=== PATIENT | female | born 1975 | race Caucasian/White ===

== ENCOUNTER 2020-03-05 15:34 | Inpatient (IN) | payer SELFPAY ==
[~2020-03-05] VITALS: Ht 162.6 cm; Wt 72.6 kg
[2020-03-05] MEDS ORDERED: PNV1TABL76 PO (16:19)
[2020-03-05] MEDS ORDERED: LIDOCAINE HCL 1% 20ML VIAL (Pyxis) INJ INFIL SCH (16:30)
[2020-03-05] MEDS ORDERED: RHO(D) IMMUNE GLOBULIN 300 MCG/SYR IM SCH (16:30)
[2020-03-05] MEDS ORDERED: LACTATED RINGERS 1,000 ML IV SCH (16:45)
[2020-03-05 16:50] LABS: CLARITY URINE CLEAR (CLEAR); COLOR URINE YELLOW (YELLOW); KETONES URINE NEGATIVE (NEGATIVE); LEUKOCYTE ESTERASE URINE TRACE (NEGATIVE); NITRITE URINE NEGATIVE (NEGATIVE); OCCULT BLOOD URINE NEGATIVE (NEGATIVE); PH URINE 6.5 (4.5-8.0); PROTEIN URINE TRACE (NEGATIVE); SPECIFIC GRAVITY URINE 1.006 (1.005-1.030); UROBILINOGEN URINE 0.2 E.U./dL (0.2-1.0)
[2020-03-05] MEDS ORDERED: PENICILLIN G POTASSIUM 5MMU in DEXTROSE 5% WATER 100ML IV NR (17:00)
[2020-03-05 17:19] LABS: *BARBITURATES SCREEN URINE NEGATIVE (NEGATIVE); *BENZODIAZEPINES SCREEN URINE NEGATIVE (NEGATIVE)
[2020-03-05 17:20] LABS: *COCAINE SCREEN URINE NEGATIVE (NEGATIVE); CANNABINOID URINE SCREEN NEGATIVE (NEGATIVE); METHADONE URINE SCREEN NEGATIVE (NEGATIVE); OPIATES URINE SCREEN NEGATIVE (NEGATIVE); PHENCYCLIDINE URINE SCREEN NEGATIVE (NEGATIVE)
[2020-03-05 17:24] LABS: *AMPHETAMINES SCREEN URINE PRESUMTIVE POSITIVE (NEGATIVE)
[2020-03-05 17:28] LABS: BASOPHILS % 0.5 % (0.0-2.0); EOSINOPHILS % 0.5 % (0.0-5.0); HEMATOCRIT. 34.8 % (36.0-48.0); HEMOGLOBIN. 11.8 g/dL (12.0-16.0); LYMPHOCYTES % 26.4 % (20.0-50.0); MEAN CORPUSCULAR HEMOGLOBIN 30.3 pg (28.0-32.0); MEAN CORPUSCULAR VOLUME 89.4 fL (81.0-99.0); MEAN PLATELET VOLUME 11.2 fl (7.4-10.4); MONOCYTES % 10.1 % (2.0-8.0); NEUTROPHILS % 62.5 % (40.0-76.0); PLATELET 150 x1000/uL (130-400); RED CELL DISTRIBUTION WIDTH 13.7 % (11.6-14.6)
[2020-03-05] MEDS ORDERED: BUTORPHANOL TARTRATE 2 MG/ML VIAL IV SCH (18:21)
[2020-03-05] MEDS ORDERED: DEXT 5%/LR + PITOCIN 20UNITS/L 1,000 ML IV ONE (19:36)
[2020-03-05] MEDS ORDERED: DEXT 5%/LR + PITOCIN 20UNITS/L 1,000 ML IV SCH (20:24)
[2020-03-05] MEDS ORDERED: GLYCERIN/WITCH HAZEL LEAF MEDICATED PAD TOP PRN (20:30)
[2020-03-05] MEDS ORDERED: LANOLIN OINT 7GM TUBE TOP PRN (20:30)
[2020-03-05] MEDS ORDERED: ACETAMINOPHEN WITH CODEINE 300/30MG TABLET PO PRN (20:30)
[2020-03-05] MEDS ORDERED: DIPHENHYDRAMINE 25MG CAPSULE PO PRN (20:30)
[2020-03-05] MEDS ORDERED: BENZOCAINE/LANOLIN/ALOE VERA SPRAY TOP PRN (20:30)
[2020-03-05] MEDS ORDERED: HEMORRHOIDAL SUPP PR PRN (20:30)
[2020-03-05] MEDS ORDERED: RHO(D) IMMUNE GLOBULIN 300 MCG/SYR IM PRN (20:30)
[2020-03-05] MEDS ORDERED: BISACODYL 10MG SUPP PR PRN (20:30)
[2020-03-05] MEDS ORDERED: IBUPROFEN 400MG TABLET PO PRN (20:30)
[2020-03-05 21:30] VITALS: BP 141/88
[2020-03-05] MEDS: IBUPROFEN 800MG TABLET PO PRN (21:47)
[2020-03-05] MEDS: SIMETHICONE 80MG TABLET CHEW PO SCH (21:47)
[2020-03-05] MEDS: MAGNESIUM/ALUMINUM HYDROXIDE/SIMETHICONE 30ML UDC PO SCH (21:47)
[2020-03-05] MEDS: DOCUSATE SODIUM 100MG CAPSULE PO SCH (21:47)
[2020-03-05] MEDS ORDERED: PENICILLIN G POTASSIUM 2.5 MMU in DEXTROSE 5% WATER 50 ML IV SCH (22:00)
[2020-03-06 04:00] VITALS: BP 128/65
[2020-03-06] MEDS: IBUPROFEN 800MG TABLET PO PRN ×4 (05:56→22:41)
[2020-03-06] MEDS ORDERED: PRENATAL VIT/FE FUMARATE/FA TABLET PO SCH (09:00)
[2020-03-06] MEDS ORDERED: FERROUS SULFATE 325MG TABLET PO SCH (09:00)
[2020-03-06 10:09] LABS: BASOPHILS % 0.2 % (0.0-2.0); EOSINOPHILS % 0.4 % (0.0-5.0); HEMATOCRIT. 30.3 % (36.0-48.0); HEMOGLOBIN. 10.3 g/dL (12.0-16.0); MEAN CORPUSCULAR HEMOGLOBIN 30.1 pg (28.0-32.0); MEAN PLATELET VOLUME 11.3 fl (7.4-10.4); MONOCYTES % 8.6 % (2.0-8.0); NEUTROPHILS % 75.8 % (40.0-76.0); PLATELET 141 x1000/uL (130-400); RED BLOOD CELL COUNT 3.41 mill/uL (4.2-5.4); RED CELL DISTRIBUTION WIDTH 13.9 % (11.6-14.6)
[2020-03-06 13:15] LABS: HEPATITIS B SURFACE ANTIGEN NEGATIVE
[2020-03-06] MEDS: DOCUSATE SODIUM 100MG CAPSULE PO SCH ×2 (16:23→22:33)
[2020-03-06] MEDS: MAGNESIUM/ALUMINUM HYDROXIDE/SIMETHICONE 30ML UDC PO SCH ×2 (16:25→21:00)
[2020-03-06 18:03] VITALS: BP 131/67
[2020-03-06 19:20] VITALS: BP 115/68
[2020-03-06] MEDS: SIMETHICONE 80MG TABLET CHEW PO SCH (21:00)
[2020-03-06 23:50] VITALS: BP 122/70
[2020-03-07 07:15] VITALS: BP 116/66
[2020-03-07] MEDS: DOCUSATE SODIUM 100MG CAPSULE PO SCH (13:55)
[2020-03-07] MEDS: IBUPROFEN 800MG TABLET PO PRN (13:55)
[2020-03-09 13:06] LABS: AMPHETAMINE CONF URINE Positive (.)
== END 2020-03-07 18:15 | disposition home or self-care (01) | DRG 560 ==
LOC: 8 EST LDRP 15:34 → 8 EST A/PP 20:46
PROVIDERS: ADMIT Obstetrics & Gynecology; ATTEND Obstetrics & Gynecology
PROC: 10E0XZZ Delivery of Products of Conception, External Approach (ICD-10-PCS; principal; 2020-03-05)
DX: O60.14X0 Preterm labor third trimester with preterm delivery third trimester, not applicable or unspecified (principal); O99.324 Drug use complicating childbirth; F15.10 Other stimulant abuse, uncomplicated; O69.81X0 Labor and delivery complicated by cord around neck, without compression, not applicable or unspecified; Z3A.35 35 weeks gestation of pregnancy; Z37.0 Single live birth
CPT/HCPCS: 36415; 76805; 76818; 80305; 80307; 81003; 85025; 86592; 86703; 86762; 86850; 86900; 87340; 88307; J0595; J2540; J2590; J7060